=== PATIENT | female | born 1955 | race Caucasian/White ===

== ENCOUNTER → 2017-11-20 | Day surgery (SDC) | payer OTHER ==
[~2017-11-20] MED LIST: IV RINGERS,LACTATED 1000ML 1,000 ML IV; PROPOFOL 20 ML IV
== END | disposition home or self-care (01) ==
LOC: SURG 08:09
DX: Z12.11 Encounter for screening for malignant neoplasm of colon (principal); K63.5 Polyp of colon; K64.0 First degree hemorrhoids; D64.9 Anemia, unspecified; F41.9 Anxiety disorder, unspecified; Z98.890 Other specified postprocedural states; F32.9 Major depressive disorder, single episode, unspecified; K21.9 Gastro-esophageal reflux disease without esophagitis; Z83.3 Family history of diabetes mellitus; Z98.51 Tubal ligation status; Z86.010 Personal history of colon polyps
CPT/HCPCS: 45380; 88305; J2704